=== PATIENT | male | born 1950 | race Caucasian/White ===

== ENCOUNTER → 2019-04-24 | Outpatient (CLI) | payer OTHER ==
[~2019-04-24] VITALS: Ht 162.6 cm; Wt 100.9 kg
[~2019-04-24] MED LIST: ASA81BEC PO; FISH OIL 1,0001 EAC9 PO; IRON325 PO; LEVO-T75 MCG PO; MAXALT10 MG PO; NAPROSYN500 MG PO; ZANTAC 150MG T150 M1 PO
[2019-04-24 11:49] VITALS: BP 160/68
== END | disposition home or self-care (01) ==
LOC: CATH 11:13
DX: I87.2 Venous insufficiency (chronic) (peripheral) (principal); I87.323 Chronic venous hypertension (idiopathic) with inflammation of bilateral lower extremity; M79.89 Other specified soft tissue disorders; E03.9 Hypothyroidism, unspecified; G43.909 Migraine, unspecified, not intractable, without status migrainosus; I73.9 Peripheral vascular disease, unspecified; E78.5 Hyperlipidemia, unspecified; Z87.891 Personal history of nicotine dependence; Z98.890 Other specified postprocedural states; Z79.899 Other long term (current) drug therapy; Z79.82 Long term (current) use of aspirin

== ENCOUNTER → 2019-04-29 | Outpatient (CLI) | payer OTHER ==
[~2019-04-29] VITALS: Ht 162.6 cm; Wt 100.7 kg
[2019-04-29 12:41] VITALS: BP 135/59
== END | disposition home or self-care (01) ==
LOC: CATH 12:30
DX: I87.321 Chronic venous hypertension (idiopathic) with inflammation of right lower extremity (principal); M79.604 Pain in right leg; R22.41 Localized swelling, mass and lump, right lower limb; E03.9 Hypothyroidism, unspecified; G43.909 Migraine, unspecified, not intractable, without status migrainosus; Z98.890 Other specified postprocedural states; Z79.82 Long term (current) use of aspirin; Z79.899 Other long term (current) drug therapy